=== PATIENT | female | born 1945 | race Caucasian/White ===

== ENCOUNTER 2021-05-27 15:38 | Emergency (ER) | payer MEDICARE, OTHER ==
[~2021-05-27] VITALS: Ht 162.6 cm; Wt 63.0 kg
[2021-05-27] MEDS ORDERED: ACETAMINOPHEN325 M1 PO (16:16)
[2021-05-27] MEDS ORDERED: ARTHRITIS PAIN100 GM TOP (16:18)
[2021-05-27] MEDS ORDERED: DONEPEZIL HCL5 M1 PO (16:19)
[2021-05-27] MEDS ORDERED: REMERON30 MG PO (16:20)
[2021-05-27] MEDS ORDERED: MELATONIN3 M1 PO (16:20)
[2021-05-27] MEDS ORDERED: OMEPRAZOLE20 MG PO (16:20)
== END 2021-05-27 17:17 | disposition home or self-care (01) ==
LOC: ED 15:38
DX: M54.41 Lumbago with sciatica, right side (principal); Z87.891 Personal history of nicotine dependence; Z79.899 Other long term (current) drug therapy; F03.90 Unspecified dementia, unspecified severity, without behavioral disturbance, psychotic disturbance, mood disturbance, and anxiety
CPT/HCPCS: 81001; 99283

== ENCOUNTER 2022-01-18 14:31 | Emergency (ER) | payer MEDICARE, OTHER ==
[~2022-01-18] VITALS: Ht 162.6 cm; Wt 54.4 kg
[~2022-01-18 14:31] MED LIST: ACETAMINOPHEN325 M1 PO; ARTHRITIS PAIN100 GM TOP; DONEPEZIL HCL5 M1 PO; MELATONIN3 M1 PO; OMEPRAZOLE20 MG PO; REMERON30 MG PO
--- OUTSIDE RECORDS SUMMARY | 2022-01-18 14:38 | XMS ---
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 [place] VISIT COUNT (12 MO.) [address] TOTAL 5 NOTE: Visits indicate total known visits. ED/UCC VISIT TRACKING (12 MO.) 01/18/2022 14:32 [facility] [place] TYPE: Emergency COMPLAINT: - WEAKNESS 01/15/2022 14:18 [facility] [place] TYPE: Emergency DIAGNOSES: - FALL - Unspecified fall, initial encounter - Fever, unspecified - Viral infection, unspecified - Weakness 2021 23:40 [facility] [place] TYPE: Emergency DIAGNOSES: - FELL - Contusion of scalp, initial encounter 11/29/2021 16:23 [facility] [place] TYPE: Emergency DIAGNOSES: - Unspecified dementia with behavioral disturbance - POSS UTI 05/27/2021 15:39 [facility] [place] TYPE: Emergency COMPLAINT: - POSSIBLE UTI DIAGNOSES: - Lumbago with sciatica, right side - Personal history of nicotine dependence - Unspecified abdominal pain - Unspecified dementia without behavioral disturbance - Other halfway (current) drug therapy INPATIENT VISIT TRACKING (12 MO.) No inpatient visits to display in this time frame [email or web address]
[2022-01-18] MEDS ORDERED: POTASSIUM CHLO10 MEQ PO (16:27)
--- NOTE | 2022-01-18 22:23 | EKG ---
[facility] [address] [facility] [place], [place] [address] Signed Normal sinus rhythm Normal ECG No previous ECGs available Confirmed by LOGAN MARIE MD ([id number]) on 01/18/2022 10:23:08 PM Electronically Signed By: LOGAN MARIE MD 01/18/222222 PATIENT NAME: FRAN DICK Electrocardiogram DATE OF : 49 PHYSICIAN: LOGAN MARIE MD REPORT #: [id number] REPORT IS CONFIDENTIAL AND NOT TO BE RELEASED WITHOUT AUTHORIZATION
== END 2022-01-18 17:01 | disposition home or self-care (01) ==
LOC: ED 14:31
DX: F03.90 Unspecified dementia, unspecified severity, without behavioral disturbance, psychotic disturbance, mood disturbance, and anxiety (principal); E87.6 Hypokalemia; R62.7 Adult failure to thrive; Z87.891 Personal history of nicotine dependence; Z79.899 Other long term (current) drug therapy
CPT/HCPCS: 36415; 51701; 80053; 81001; 83605; 84484; 85025; 93005; 93010; 97161; 99285-25; A9270; J7040